=== PATIENT | male | born 1965 | race African-American/Black ===

== ENCOUNTER 2019-04-06 12:21 | Inpatient (IN) | payer OTHER ==
[2019-04-06 12:58] VITALS: BMI 37.1
--- NOTE | 2019-04-06 14:54 | HP ---
COWS - Scale Resting Pulse: 0= [place] 80 or Below Sweatin= Chills/Flushing Restless Observation: 1= Difficult to Sit Still Pupil Size: 1= Pupils >than Normal Bone or Joint Aches: 1= Mild Discomfort Runny Nose/ Eye Tearin= Runny Nose/Eyes GI Upset > 30mins: 1= Stomach Cramp Tremor Observation: 1= Tremor [place], Not Seen Yawning Observation: 1= 1-2x During Session Anxiety or Irritability: 1=Feels Anxious/Irritable Goose Flesh Skin: 3=Piloerection COWS Score: 13 Admitting History and Physical - Admission History Source: Patient - Social History Usual Living Arrangement: Yes: Other (homeless) Admission ROS S - HPI Chief Complaint: I want to get my life together - I don't want the suboxone - I sold it for heroin - but I have to get my life together, I want to be clean Allergies/Adverse Reactions: Allergies Allergy/AdvReac Type Severity Reaction Status Date / Time No Known Allergies Allergy Verified 04/06/19 12:42 History of Present Illness: 54 yo gentleman here for detox from opiates - also uses alcohol several times a week and cocaine. When asked if he gets sick if he does not drink alcohol he states 'No, I don't drink like that". Denies seizures but does have black outs and thinks he had an overdose. This is first time here but he has a long history of opiate use - previously in suboxone program but wants to go off it - program needs to be contacted about same. He was on methadone in past as well as vivitrol - but stopped both. Longest time sober 2 years - part of that time he was incarcerated. urine tox + oxy but is not using oxy separately [facility] Others' Prescriptions Patient Name: Michael Romo Date: 1965 Address: [address] [place] [address] Sex: Male Rx Written Rx Dispensed Drug Quantity Days Supply Prescriber Name 03/26/2019 03/31/2019 buprenorphine-naloxone 8-2 mg sl film 30 20 Antony Banks MD 03/12/2019 03/12/2019 buprenorphine-naloxone 8-2 mg sl film 30 20 Antony Banks MD 02/20/2019 02/20/2019 buprenorphine-naloxone 8-2 mg sl film 30 20 Antony Banks MD 01/25/2019 01/28/2019 buprenorphine-naloxone 8-2 mg sl film 45 23 Antony Banks MD 12/28/2018 12/31/2018 buprenorphine-naloxone 8-2 mg sl film 45 30 Antony Banks MD 11/29/2018 11/29/2018 buprenorphine-naloxone 8-2 mg sl film 30 20 Antony Banks MD * Exam Limitations: No Limitations - Ebola screening Have you traveled outside of the country in the last 21 days: No (N) Have you had contact with anyone from an Ebola affected area: No Do you have a fever: No - Review of Systems Constitutional: Loss of Appetite, Weakness EENT: reports: Blurred Vision, Nose Congestion Respiratory: reports: Cough, Wheezing, Productive cough (light yellow phlegm) Cardiac: reports: No Symptoms Reported GI: reports: Abdominal cramping : reports: Frequency Musculoskeletal: reports: Back Pain, Muscle Pain Integumentary: reports: No Symptoms Reported Neuro: reports: Headache Endocrine: reports: No Symptoms Reported Hematology: reports: No Symptoms Reported Psychiatric: reports: Judgement Intact, Mood/Affect Appropiate, Orientated x3, Anxious Other Systems: Reviewed and Negative Patient History - Patient Medical History Hx Anemia: No Hx Asthma: Yes (uses inhaler) Hx Chronic Obstructive Pulmonary Disease (COPD): No Hx Cancer: No Hx Cardiac Disorders: No Hx Congestive Heart Failure: No Hx Hypertension: Yes Hx Hypercholesterolemia: No Hx Pacemaker: No HX Cerebrovascular Accident: No Hx Seizures: No Hx Diabetes: No Hx Gastrointestinal Disorders: No Hx Liver Disease: No Hx Genitourinary Disorders: No Hx Sexually Transmitted Disorders: No Hx Renal Disease (ESRD): No Hx Thyroid Disease: No Hx Human Immunodeficiency Virus (HIV): No Hx Hepatitis C: No Hx Depression: Yes (never hospitalized - no meds ) Hx Suicide Attempt: No Hx Bipolar Disorder: No Hx Schizophrenia: No - Patient Surgical History Past Surgical History: Yes Hx Orthopedic Surgery: Yes (? scalp laceration turned into massive keloid) Other Surgical History: broken jaw 1981 - PPD History Previous Implant?: Yes Documented Results: Negative w/o proof Implanted On Prior [facility] Admission?: No PPD to be Administered?: Yes - Reproductive History Patient is a Female of Child Bearing Age (11 -55 yrs old): No - Smoking Cessation Smoking history: Current every day smoker Have you smoked in the past 12 months: Yes Aproximately how many cigarettes per day: 2 Hx Chewing Tobacco Use: No Initiated information on smoking cessation: Yes 'Breaking Loose' booklet given: 04/06/19 (give on floor) - Substance & Tx. History Hx Alcohol Use: Yes Hx Substance Use: Yes Substance Use Type: Alcohol, Heroin Hx Substance Use Treatment: Yes (detox, rehab, methadone , suboxone ) - Substances abused Heroin Substance route: Inhalation Frequency: Daily Amount used: 6- 7 bags/day Age of first use: 20 Date of last use: 04/06/19 Alcohol Substance route: Oral Frequency: 3-6 times per week Amount used: six 22 ounce beer, two $1 nips = states drinks THREE times per week Age of first use: 20 Date of last use: 04/06/19 Non-Rx Methadone Substance route: Oral Frequency: 1-2 times per week Amount used: 60mg Age of first use: 29 (not sure) Date of last use: 04/03/19 Admission Physical Exam BHS - Vital Signs Vital Signs: Vital Signs - 24 hr 04/06/19 12:51 Temperature 97.5 F L Pulse Rate 61 Respiratory 18 Rate Blood Pressure 140/85 - Physical General Appearance: Yes: Nourished, Appropriately Dressed, Moderate Distress, Obese, Anxious HEENTM: Yes: EOMI, Hearing grossly Normal, Normocephalic, Normal Voice, Pharynx Normal, Other (poor dentition, missing teeth) Respiratory: Yes: No Respiratory Distress, Rhonchi Neck: Yes: No masses,lesions,Nodules Breast: Yes: Breast Exam Deferred Cardiology: Yes: Regular Rhythm, Regular Rate Abdominal: Yes: Soft, Protuberent Genitourinary: Yes: Frequency Back: Yes: Normal Inspection Musculoskeletal: Yes: full range of Motion, Gait Steady Extremities: Yes: Normal Inspection, Non-Tender Neurological: Yes: Fully Oriented, Alert, Normal Mood/Affect, Normal Response Integumentary: Yes: Normal Color, Warm, Other (large keloid across back of skull ) Lymphatic: Yes: Within Normal Limits - Diagnostic (1) Opioid dependence with withdrawal Current Visit: Yes Status: Chronic (2) Alcohol use disorder, mild, abuse Current Visit: Yes Status: Chronic (3) Cocaine dependence Current Visit: Yes Status: Chronic Qualifiers: Substance use status: uncomplicated Qualified Code(s): F14.20 - Cocaine dependence, uncomplicated (4) HTN (hypertension) Current Visit: Yes Status: Chronic Qualifiers: Hypertension type: essential hypertension Qualified Code(s): I10 - Essential (primary) hypertension (5) Nicotine use disorder Current Visit: Yes Status: Chronic (6) Obesity (BMI 30-39.9) Current Visit: Yes Status: Acute (7) COPD (chronic obstructive pulmonary disease) Current Visit: Yes Status: Acute Qualifiers: COPD type: emphysema Emphysema type: unspecified Qualified Code(s): J43.9 - Emphysema, unspecified Cleared for Admission [facility] - Detox or Rehab [facility] Level of Care: Medically Managed Detox Regimen/Protocol: Methadone Inpatient Rehab Admission - Rehab Decision to Admit Inpatient rehab admission?: No
[2019-04-06] MEDS ORDERED: MAGNESIUM CITRATE 300 ML BOTTLE PO PRN (15:09)
[2019-04-06] MEDS ORDERED: MENTHOL/PHENOL 1 EACH UD MM PRN (15:09)
[2019-04-06] MEDS ORDERED: MAGNESIUM HYDROX 2400MG/30ML ORAL SUSPENSION 30 ML CUP PO PRN (15:09)
[2019-04-06] MEDS ORDERED: NICOTINE POLACRILEX 4 MG GUM BUC PRN (15:09)
[2019-04-06] MEDS ORDERED: cloNIDine HCL 0.1 MG TABLET PO PRN (15:09)
[2019-04-06] MEDS ORDERED: METHADONE HCL 10 MG TABLET (FOR DETOX USE ONLY) PO ONE (15:09)
[2019-04-06] MEDS ORDERED: ACETAMINOPHEN 325 MG TABLET (FP) PO PRN ×2 (15:09)
[2019-04-06] MEDS ORDERED: METHOCARBAMOL 500 MG TABLET PO PRN (15:09)
[2019-04-06] MEDS ORDERED: clonazePAM 0.5 MG TABLET PO PRN (15:09)
[2019-04-06] MEDS ORDERED: BISMUTH SUBSALICYLATE 524 MG/30 ML UD PO PRN (15:09)
[2019-04-06] MEDS ORDERED: ALBUTEROL SO4 8 GM HFA INHALER IH PRN (15:11)
[2019-04-06] MEDS ORDERED: ALBUTEROL SO4 2.5/IPRATROPIUM 0.5 INH SOL 3 ML VIAL.NEB. NEB PRN (15:12)
--- NOTE | 2019-04-06 15:54 | PN ---
[facility] Progress Note Note: Patient reports having I&D of abscess to the posterior head over existing keloid. He reports not being compliant with antibiotic that was ordered. While undergoing EKG, the site started bleeding, moderate odor present. Bactrim has been ordered alongside bactroban to be applied topically.
[2019-04-06] MEDS: SULFAMETHOXAZOLE/TRIMETHOPRIM 800MG/160MG D.S. TABLET PO SCH (21:54)
[2019-04-06] MEDS: THIAMINE HCL 100 MG TABLET (FP) PO SCH (21:54)
[2019-04-06] MEDS: BUDESONIDE/FORMETEROL FUMARATE 160/4.5 mcg INHALER IH SCH (21:54)
[2019-04-06] MEDS: MELATONIN 5 MG TABLETS PO PRN (21:55)
[2019-04-06] MEDS: MUPIROCIN 2% TOPICAL OINTMENT 22 GM TUBE TP SCH (23:05)
[2019-04-07] MEDS ORDERED: METHADONE HCL 10 MG TABLET (FOR DETOX USE ONLY) ONE (09:34)
[2019-04-07] MEDS ORDERED: METHADONE HCL 5 MG TABLET (FOR DETOX USE ONLY) ONE (09:34)
[2019-04-07] MEDS ORDERED: METHADONE (DETOX) 20 MG, METHADONE (DETOX) 5 MG PO ONE (10:00)
[2019-04-07 10:36] LABS: HEMATOCRIT 34.6 % (35.4-49); HEMOGLOBIN 11.4 GM/dL (11.7-16.9); MCH 26.1 pg (25.7-33.7); MEAN PLT VOLUME 9.2 fl (7.5-11.1); PLATELET COUNT 215 K/MM3 (134-434); RBC 4.38 M/mm3 (4.00-5.60); RDW 14.7 % (11.9-15.9); WHITE BLOOD COUNT 6.6 K/mm3 (4.0-10.0)
[2019-04-07 10:42] LABS: BILIRUBIN,TOTAL 0.2 mg/dL (0.2-1); BLOOD UREA NITROGEN 20.3 mg/dL (7-18); CALCIUM 8.3 mg/dL (8.5-10.1); POTASSIUM 3.2 mmol/L (3.5-5.1); TOT PROT 6.1 g/dl (6.4-8.2)
[2019-04-07] MEDS: LISINOPRIL 20 MG TABLET (FP) PO SCH (10:51)
[2019-04-07] MEDS: amLODIPine BESYLATE 5 MG TABLET (FP) PO SCH (10:51)
[2019-04-07] MEDS: HYDROCHLOROTHIAZIDE 25 MG TABLET (FP) PO SCH (10:51)
[2019-04-07] MEDS: PRENATAL VITAMINS W/ FOLIC ACID TABLET (FP) PO SCH (10:51)
[2019-04-07] MEDS: MUPIROCIN 2% TOPICAL OINTMENT 22 GM TUBE TP SCH ×2 (10:52→22:06)
[2019-04-07] MEDS: BUDESONIDE/FORMETEROL FUMARATE 160/4.5 mcg INHALER IH SCH ×2 (10:52→22:06)
[2019-04-07] MEDS: SULFAMETHOXAZOLE/TRIMETHOPRIM 800MG/160MG D.S. TABLET PO SCH ×2 (10:54→22:07)
[2019-04-07 11:25] LABS: SICKLE CELL SCREEN NEGATIVE (NEGATIVE)
[2019-04-07] MEDS: IBUPROFEN 400 MG TABLET (FP) PO PRN (11:27)
--- NOTE | 2019-04-07 11:28 | PN ---
BHS COWS - Scale Resting Pulse: 1= [place] 81-100 Sweatin= Chills/Flushing Restless Observation: 1= Difficult to Sit Still Pupil Size: 0= Normal to Room Light Bone or Joint Aches: 1= Mild Discomfort Runny Nose/ Eye Tearin= Nasal Congestion GI Upset > 30mins: 1= Stomach Cramp Tremor Observation of Outstretched Hands: 2= Slight Tremor Visible Yawning Observation: 1= 1-2x During Session Anxiety or Irritability: 2=Irritable/Anxious Goose Flesh Skin: 0=Smooth Skin COWS Score: 11 S Progress Note (SOAP) Subjective: sweats shakes diarrhea Objective: 04/07/19 11:44 Laboratory Last Values WBC 6.6 K/mm3 (4.0-10.0) 04/07/19 07:30 RBC 4.38 M/mm3 (4.00-5.60) 04/07/19 07:30 Hgb 11.4 GM/dL (11.7-16.9) L 04/07/19 07:30 Hct 34.6 % (35.4-49) L 04/07/19 07:30 MCV 79.0 fl (80-96) L 04/07/19 07:30 MCH 26.1 pg (25.7-33.7) 04/07/19 07:30 MCHC 33.0 g/dl (32.0-35.9) 04/07/19 07:30 RDW 14.7 % (11.9-15.9) 04/07/19 07:30 Plt Count 215 K/MM3 (134-434) 04/07/19 07:30 MPV 9.2 fl (7.5-11.1) 04/07/19 07:30 Sickle Cell Screen Cancelled 04/07/19 07:50 Sodium 138 mmol/L (136-145) 04/07/19 07:30 Potassium 3.2 mmol/L (3.5-5.1) L 04/07/19 07:30 Chloride 102 mmol/L (98-107) 04/07/19 07:30 Carbon Dioxide 29 mmol/L (21-32) 04/07/19 07:30 Anion Gap 6 MMOL/L (8-16) L 04/07/19 07:30 BUN 20.3 mg/dL (7-18) H 04/07/19 07:30 Creatinine 1.0 mg/dL (0.55-1.3) 04/07/19 07:30 Est GFR (CKD-EPI)AfAm 97.77 04/07/19 07:30 Est GFR (CKD-EPI)NonAf 84.35 04/07/19 07:30 Random Glucose 88 mg/dL (74-106) 04/07/19 07:30 Calcium 8.3 mg/dL (8.5-10.1) L 04/07/19 07:30 Total Bilirubin 0.2 mg/dL (0.2-1) 04/07/19 07:30 AST 19 U/L (15-37) 04/07/19 07:30 ALT 25 U/L (13-61) 04/07/19 07:30 Alkaline Phosphatase 71 U/L (45-117) 04/07/19 07:30 Total Protein 6.1 g/dl (6.4-8.2) L 04/07/19 07:30 Albumin 3.0 g/dl (3.4-5.0) L 04/07/19 07:30 RPR Titer Nonreactive (NONREACTIVE) 04/07/19 07:30 Vital Signs Temperature 97.3 F L 04/07/19 09:07 Pulse Rate 81 04/07/19 09:07 Respiratory Rate 164 H 04/07/19 09:07 Blood Pressure 164/98 04/07/19 09:07 O2 Sat by Pulse Oximetry (%) R - 16, not 164, low potassium Assessment: 04/07/19 11:57 withdrawal sx hypokalemia Plan: continue detox potassium supplement
[2019-04-07] MEDS: POTASSIUM CHLORIDE TABS 20 MEQ TABLET.ER (FP) PO SCH (12:32)
[2019-04-07] MEDS: THIAMINE HCL 100 MG TABLET (FP) PO SCH (22:07)
[2019-04-07] MEDS: MELATONIN 5 MG TABLETS PO PRN (22:07)
[2019-04-07] MEDS: guaiFENesin 200 MG/10 ML 10 ML UNIT-DOSE CUPS PO PRN (22:09)
[2019-04-08] MEDS ORDERED: METHADONE HCL 10 MG TABLET (FOR DETOX USE ONLY) PO ONE (10:00)
[2019-04-08] MEDS: MUPIROCIN 2% TOPICAL OINTMENT 22 GM TUBE TP SCH ×2 (10:20→22:11)
[2019-04-08] MEDS: LISINOPRIL 20 MG TABLET (FP) PO SCH (10:21)
[2019-04-08] MEDS: amLODIPine BESYLATE 5 MG TABLET (FP) PO SCH (10:21)
[2019-04-08] MEDS: POTASSIUM CHLORIDE TABS 20 MEQ TABLET.ER (FP) PO SCH (10:21)
[2019-04-08] MEDS: SULFAMETHOXAZOLE/TRIMETHOPRIM 800MG/160MG D.S. TABLET PO SCH ×2 (10:22→22:10)
[2019-04-08] MEDS: HYDROCHLOROTHIAZIDE 25 MG TABLET (FP) PO SCH (10:25)
[2019-04-08] MEDS: PRENATAL VITAMINS W/ FOLIC ACID TABLET (FP) PO SCH (10:25)
[2019-04-08] MEDS: BUDESONIDE/FORMETEROL FUMARATE 160/4.5 mcg INHALER IH SCH ×2 (10:25→22:10)
--- NOTE | 2019-04-08 10:29 | EKG ---
Test Reason : Blood Pressure : / mmHG Vent. Rate : 061 BPM Atrial Rate : 061 BPM P-R Int : 152 ms QRS Dur : 102 ms QT Int : 434 ms P-R-T Axes : 040 053 000 degrees QTc Int : 436 ms SINUS RHYTHM WITH PREMATURE ATRIAL COMPLEXES MINIMAL VOLTAGE CRITERIA FOR LVH, MAY BE NORMAL VARIANT NONSPECIFIC T WAVE ABNORMALITY ABNORMAL ECG NO PREVIOUS ECGS AVAILABLE Confirmed by JENNIFER WHEELER MD ([id number]) on 04/08/2019 10:29:20 AM Referred By: Confirmed By:JENNIFER WHEELER MD
[2019-04-08] MEDS ORDERED: amLODIPine BESYLATE 5 MG TABLET (FP) PO ONE (12:53)
--- NOTE | 2019-04-08 12:55 | PN ---
BHS COWS - Scale Resting Pulse: 0= [place] 80 or Below Sweatin= Chills/Flushing Restless Observation: 1= Difficult to Sit Still Pupil Size: 0= Normal to Room Light Bone or Joint Aches: 1= Mild Discomfort Runny Nose/ Eye Tearin= None GI Upset > 30mins: 0= None Tremor Observation of Outstretched Hands: 2= Slight Tremor Visible Yawning Observation: 2= >3x During Session Anxiety or Irritability: 2=Irritable/Anxious Goose Flesh Skin: 0=Smooth Skin COWS Score: 9 BHS Progress Note (SOAP) Subjective: Fatigue, Anxious, Sweating, Tremors. Objective: PATIENT A & O X 3, OBSERVED AMBULATING ON DETOX UNIT UNASSISTED. IN NO ACUTE DISTRESS. 04/08/19 12:57 Vital Signs Temperature 98.1 F 04/08/19 09:04 Pulse Rate 62 04/08/19 09:04 Respiratory Rate 18 04/08/19 09:04 Blood Pressure 152/78 04/08/19 09:04 O2 Sat by Pulse Oximetry (%) Laboratory Tests 04/07/19 04/07/19 04/07/19 07:30 07:30 07:30 WBC 6.6 RBC 4.38 Hgb 11.4 L Hct 34.6 L MCV 79.0 L MCH 26.1 MCHC 33.0 RDW 14.7 Plt Count 215 MPV 9.2 Sickle Cell Screen Negative Sodium 138 Potassium 3.2 L Chloride 102 Carbon Dioxide 29 Anion Gap 6 L BUN 20.3 H Creatinine 1.0 Est GFR (CKD-EPI)AfAm 97.77 Est GFR (CKD-EPI)NonAf 84.35 Random Glucose 88 Calcium 8.3 L Total Bilirubin 0.2 AST 19 ALT 25 Alkaline Phosphatase 71 Total Protein 6.1 L Albumin 3.0 L RPR Titer Nonreactive 04/07/19 04/08/19 07:50 07:45 WBC RBC Hgb Hct MCV MCH MCHC RDW Plt Count MPV Sickle Cell Screen Cancelled Sodium Potassium 3.6 Chloride Carbon Dioxide Anion Gap BUN Creatinine Est GFR (CKD-EPI)AfAm Est GFR (CKD-EPI)NonAf Random Glucose Calcium Total Bilirubin AST ALT Alkaline Phosphatase Total Protein Albumin RPR Titer LABS NOTED. RESULT OF REPEAT POTASSIUM 93.6) LEVEL NOTED - RESULT NOW NOTED TO BE WITHIN NORMAL RANGE. WILL D/C K-DUR. 04/08/19 12:58 Assessment: 04/08/19 12:59 WITHDRAWAL SYMPTOMS. HYPERTENSION. ANEMIA. Plan: CONTINUE DETOX. START FEOSOL, 325 MG PO BIDWM FOR ANEMIA NOTED ON DETOX ADMISSION LABORATORY ASSESSMENT. INCREASE DAILY DOSE OF AMLODIPINE TO 10 MG PO DAILY FOR ELEVATED BLOOD PRESSURE DESPITE PREVIOUS TREATMENT.
[2019-04-08] MEDS: IBUPROFEN 400 MG TABLET (FP) PO PRN (13:43)
[2019-04-08] MEDS: MAG HYDROX/AL HYDROX/SIMETH 30 ML UNIT-DOSE CUP PO PRN (13:43)
[2019-04-08] MEDS: FERROUS SO4 325 MG TABLET (FP) PO SCH (18:30)
[2019-04-08] MEDS: THIAMINE HCL 100 MG TABLET (FP) PO SCH (22:10)
[2019-04-08] MEDS: MELATONIN 5 MG TABLETS PO PRN (22:13)
[2019-04-09] MEDS: FERROUS SO4 325 MG TABLET (FP) PO SCH ×2 (08:00→18:09)
[2019-04-09] MEDS ORDERED: METHADONE (DETOX) 10 MG, METHADONE (DETOX) 5 MG PO ONE (10:00)
[2019-04-09] MEDS ORDERED: METHADONE HCL 10 MG TABLET (FOR DETOX USE ONLY) ONE (10:27)
[2019-04-09] MEDS ORDERED: METHADONE HCL 5 MG TABLET (FOR DETOX USE ONLY) ONE (10:27)
[2019-04-09] MEDS: amLODIPine BESYLATE 10 MG TABLET (FP) PO SCH (10:44)
[2019-04-09] MEDS: BUDESONIDE/FORMETEROL FUMARATE 160/4.5 mcg INHALER IH SCH ×2 (10:44→21:27)
[2019-04-09] MEDS: HYDROCHLOROTHIAZIDE 25 MG TABLET (FP) PO SCH (10:44)
[2019-04-09] MEDS: LISINOPRIL 20 MG TABLET (FP) PO SCH (10:44)
[2019-04-09] MEDS: PRENATAL VITAMINS W/ FOLIC ACID TABLET (FP) PO SCH (10:44)
[2019-04-09] MEDS: SULFAMETHOXAZOLE/TRIMETHOPRIM 800MG/160MG D.S. TABLET PO SCH ×2 (10:44→21:28)
[2019-04-09] MEDS: MUPIROCIN 2% TOPICAL OINTMENT 22 GM TUBE TP SCH ×2 (10:45→21:28)
--- NOTE | 2019-04-09 11:20 | PN ---
BHS COWS - Scale Resting Pulse: 0= [place] 80 or Below Sweatin= Chills/Flushing Restless Observation: 0= Sits Still Pupil Size: 0= Normal to Room Light Bone or Joint Aches: 2= Severe Diffuse Aches Runny Nose/ Eye Tearin= Nasal Congestion GI Upset > 30mins: 1= Stomach Cramp Tremor Observation of Outstretched Hands: 1= Tremor [place], Not Seen Yawning Observation: 1= 1-2x During Session Anxiety or Irritability: 2=Irritable/Anxious Goose Flesh Skin: 0=Smooth Skin COWS Score: 9 BHS Progress Note (SOAP) Subjective: stomach cramping sweats chills body aches Objective: 04/09/19 11:19 Vital Signs Temperature 98.2 F 04/09/19 06:18 Pulse Rate 70 04/09/19 06:18 Respiratory Rate 20 04/09/19 06:18 Blood Pressure 151/85 04/09/19 06:18 O2 Sat by Pulse Oximetry (%) Laboratory Tests 04/07/19 04/07/19 04/07/19 07:30 07:30 07:30 WBC 6.6 RBC 4.38 Hgb 11.4 L Hct 34.6 L MCV 79.0 L MCH 26.1 MCHC 33.0 RDW 14.7 Plt Count 215 MPV 9.2 Sickle Cell Screen Negative Sodium 138 Potassium 3.2 L Chloride 102 Carbon Dioxide 29 Anion Gap 6 L BUN 20.3 H Creatinine 1.0 Est GFR (CKD-EPI)AfAm 97.77 Est GFR (CKD-EPI)NonAf 84.35 Random Glucose 88 Calcium 8.3 L Total Bilirubin 0.2 AST 19 ALT 25 Alkaline Phosphatase 71 Total Protein 6.1 L Albumin 3.0 L RPR Titer Nonreactive 04/07/19 04/08/19 07:50 07:45 WBC RBC Hgb Hct MCV MCH MCHC RDW Plt Count MPV Sickle Cell Screen Cancelled Sodium Potassium 3.6 Chloride Carbon Dioxide Anion Gap BUN Creatinine Est GFR (CKD-EPI)AfAm Est GFR (CKD-EPI)NonAf Random Glucose Calcium Total Bilirubin AST ALT Alkaline Phosphatase Total Protein Albumin RPR Titer labs noted aaox3 ambulating no acute distress Assessment: 04/09/19 11:20 withdrawals Plan: continue detox increase fluids MOM/mylanta prn
[2019-04-09] MEDS: MELATONIN 5 MG TABLETS PO PRN (21:28)
[2019-04-09] MEDS: THIAMINE HCL 100 MG TABLET (FP) PO SCH (21:28)
[2019-04-10] MEDS: FERROUS SO4 325 MG TABLET (FP) PO SCH ×2 (07:34→17:56)
[2019-04-10] MEDS ORDERED: METHADONE HCL 10 MG TABLET (FOR DETOX USE ONLY) PO ONE (10:00)
[2019-04-10] MEDS: HYDROCHLOROTHIAZIDE 25 MG TABLET (FP) PO SCH (10:47)
[2019-04-10] MEDS: BUDESONIDE/FORMETEROL FUMARATE 160/4.5 mcg INHALER IH SCH ×2 (10:47→21:48)
[2019-04-10] MEDS: amLODIPine BESYLATE 10 MG TABLET (FP) PO SCH (10:47)
[2019-04-10] MEDS: PRENATAL VITAMINS W/ FOLIC ACID TABLET (FP) PO SCH (10:48)
[2019-04-10] MEDS: LISINOPRIL 20 MG TABLET (FP) PO SCH (10:48)
[2019-04-10] MEDS: SULFAMETHOXAZOLE/TRIMETHOPRIM 800MG/160MG D.S. TABLET PO SCH ×2 (10:48→21:47)
[2019-04-10] MEDS: MUPIROCIN 2% TOPICAL OINTMENT 22 GM TUBE TP SCH ×2 (11:20→21:48)
--- NOTE | 2019-04-10 11:59 | PN ---
BHS COWS - Scale Resting Pulse: 1= [place] 81-100 Sweatin= Chills/Flushing Restless Observation: 1= Difficult to Sit Still Pupil Size: 0= Normal to Room Light Bone or Joint Aches: 2= Severe Diffuse Aches Runny Nose/ Eye Tearin= None GI Upset > 30mins: 0= None Tremor Observation of Outstretched Hands: 1= Tremor [place], Not Seen Yawning Observation: 0= None Anxiety or Irritability: 1=Feels Anxious/Irritable Goose Flesh Skin: 0=Smooth Skin COWS Score: 7 BHS Progress Note (SOAP) Subjective: agitation sweats irritable Objective: 04/10/19 11:56 Vital Signs Temperature 98.7 F 04/10/19 10:15 Pulse Rate 75 04/10/19 10:15 Respiratory Rate 18 04/10/19 10:15 Blood Pressure 152/87 04/10/19 10:15 O2 Sat by Pulse Oximetry (%) aaox3 ambulating no acute distress Assessment: 04/10/19 11:59 withdrawals Plan: continue detox increase fluids d/c in am
[2019-04-10] MEDS: IBUPROFEN 400 MG TABLET (FP) PO PRN (18:47)
[2019-04-10] MEDS: MAG HYDROX/AL HYDROX/SIMETH 30 ML UNIT-DOSE CUP PO PRN (20:01)
[2019-04-10] MEDS: THIAMINE HCL 100 MG TABLET (FP) PO SCH (21:47)
[2019-04-10] MEDS: MELATONIN 5 MG TABLETS PO PRN (21:48)
[2019-04-11] MEDS: IBUPROFEN 400 MG TABLET (FP) PO PRN (05:49)
[2019-04-11] MEDS ORDERED: METHADONE HCL 5 MG TABLET (FOR DETOX USE ONLY) PO ONE (06:00)
[2019-04-11 06:20] VITALS: BP 140/87; PULSE 65; TEMP 98.1
[2019-04-11] MEDS: FERROUS SO4 325 MG TABLET (FP) PO SCH (07:40)
[2019-04-11] MEDS: LISINOPRIL 20 MG TABLET (FP) PO SCH (09:20)
[2019-04-11] MEDS: amLODIPine BESYLATE 10 MG TABLET (FP) PO SCH (09:20)
[2019-04-11] MEDS: SULFAMETHOXAZOLE/TRIMETHOPRIM 800MG/160MG D.S. TABLET PO SCH (09:20)
[2019-04-11] MEDS: guaiFENesin 200 MG/10 ML 10 ML UNIT-DOSE CUPS PO PRN (09:20)
[2019-04-11] MEDS: HYDROCHLOROTHIAZIDE 25 MG TABLET (FP) PO SCH (09:20)
--- NOTE | 2019-04-11 09:39 | DS ---
[facility] Detox Discharge Summary Admission Date: 04/06/19 Discharge Date: 04/11/19 - History Present History: Alcohol Dependence, Cocaine Dependence, Opioid Dependence - Physical Exam Results Vital Signs: Vital Signs Temperature 98.1 F 04/11/19 06:19 Pulse Rate 65 04/11/19 06:19 Respiratory Rate 18 04/11/19 06:19 Blood Pressure 140/87 04/11/19 06:19 O2 Sat by Pulse Oximetry (%) Pertinent Admission Physical Exam Findings: pt arrived in withdrawals Laboratory Tests 04/07/19 04/07/19 04/07/19 07:30 07:30 07:30 WBC 6.6 RBC 4.38 Hgb 11.4 L Hct 34.6 L MCV 79.0 L MCH 26.1 MCHC 33.0 RDW 14.7 Plt Count 215 MPV 9.2 Sickle Cell Screen Negative Sodium 138 Potassium 3.2 L Chloride 102 Carbon Dioxide 29 Anion Gap 6 L BUN 20.3 H Creatinine 1.0 Est GFR (CKD-EPI)AfAm 97.77 Est GFR (CKD-EPI)NonAf 84.35 Random Glucose 88 Calcium 8.3 L Total Bilirubin 0.2 AST 19 ALT 25 Alkaline Phosphatase 71 Total Protein 6.1 L Albumin 3.0 L RPR Titer Nonreactive 04/07/19 04/08/19 07:50 07:45 WBC RBC Hgb Hct MCV MCH MCHC RDW Plt Count MPV Sickle Cell Screen Cancelled Sodium Potassium 3.6 Chloride Carbon Dioxide Anion Gap BUN Creatinine Est GFR (CKD-EPI)AfAm Est GFR (CKD-EPI)NonAf Random Glucose Calcium Total Bilirubin AST ALT Alkaline Phosphatase Total Protein Albumin RPR Titer today pt is aaox3 ambulating no acute distress no s/s of withdrawals - Treatment Hospital Course: Detox Protocol Followed, Detoxed Safely, Responded well, Discharged Condition Good, Rehab Referral Accepted Patient has Accepted a Rehab Referral to: pt referred to [facility] inpatient rehab - Medication Discharge Medications: Ambulatory Orders Albuterol Sulfate [Proventil HFA Inhaler -] 1 - 2 inh PO QID 04/06/19 Amlodipine Besylate 5 mg PO DAILY 04/06/19 Hydrochlorothiazide 25 mg PO DAILY 04/06/19 Lisinopril 20 mg PO DAILY 04/06/19 Naproxen 500 mg PO BID PRN 04/06/19 - Diagnosis (1) Anemia Current Visit: Yes Status: Acute Qualifiers: Anemia type: iron deficiency Iron deficiency anemia type: unspecified iron deficiency Qualified Code(s): D50.9 - Iron deficiency anemia, unspecified (2) COPD (chronic obstructive pulmonary disease) Current Visit: Yes Status: Acute Qualifiers: COPD type: emphysema Emphysema type: unspecified Qualified Code(s): J43.9 - Emphysema, unspecified (3) Obesity (BMI 30-39.9) Current Visit: Yes Status: Chronic (4) Alcohol use disorder, mild, abuse Current Visit: Yes Status: Chronic (5) Cocaine dependence Current Visit: Yes Status: Chronic Qualifiers: Substance use status: uncomplicated Qualified Code(s): F14.20 - Cocaine dependence, uncomplicated (6) HTN (hypertension) Current Visit: Yes Status: Chronic Qualifiers: Hypertension type: essential hypertension Qualified Code(s): I10 - Essential (primary) hypertension (7) Nicotine use disorder Current Visit: Yes Status: Chronic (8) Opioid dependence with withdrawal Current Visit: Yes Status: Chronic - AMA Did Patient Leave Against Medical Advice: No
[2019-04-11] MEDS: PRENATAL VITAMINS W/ FOLIC ACID TABLET (FP) PO SCH (10:18)
[2019-04-11] MEDS: BUDESONIDE/FORMETEROL FUMARATE 160/4.5 mcg INHALER IH SCH (10:18)
[2019-04-11] MEDS: MUPIROCIN 2% TOPICAL OINTMENT 22 GM TUBE TP SCH (10:18)
== END 2019-04-11 10:35 | disposition other institution (70) | DRG 773 ==
LOC: YASAS 12:21 → Y6N 15:26
PROVIDERS: ADMIT Surgery; ATTEND Allergy & Immunology
PROC: HZ2ZZZZ Detoxification Services for Substance Abuse Treatment (ICD-10-PCS; principal; 2019-04-06)
DX: F11.23 Opioid dependence with withdrawal (principal); F10.230 Alcohol dependence with withdrawal, uncomplicated; F14.20 Cocaine dependence, uncomplicated; F17.200 Nicotine dependence, unspecified, uncomplicated; E87.6 Hypokalemia; I10 Essential (primary) hypertension; J43.9 Emphysema, unspecified; D50.9 Iron deficiency anemia, unspecified; E66.9 Obesity, unspecified; Z68.37 Body mass index [BMI] 37.0-37.9, adult
CPT/HCPCS: 36415; 80053; 84132; 85027; 85660; 86593; 93005; 93010